=== PATIENT | male | born 1950 | race Caucasian/White ===

== ENCOUNTER 2022-09-17 00:27 | Day surgery (SDC) | payer MEDICARE, SELFPAY ==
[2022-09-04 11:54] VITALS: BMI 28.8
[2022-09-17 07:52] VITALS: BP 124/74; PULSE 54; RESP 18; TEMP 36.2; O2SAT 98
[2022-09-17] MEDS: LACTATED RINGERS 1,000 ML 150 ML IV CONT (08:05)
--- NOTE | 2022-09-17 08:05 | PM.HPGS ---
History of Present Illness History of Present Illness Consent: Risks, benefits, and alternatives have been discussed and questions answered. Patient agrees to proceed with procedure. Chief complaint: Hx of colon polyps Narrative: Bulmaro Jack is a 72 year old male Presents for screening colonoscopy. Patient's current weight appetite and bowel movements are normal. Patient denies abdominal pain. He has had no bleeding. Family history noncontributory. Patient has previous colonoscopy in 2016 revealed benign colon polyp that was removed. Review of Systems Review of Systems: Review of systems noncontributory. [facility] Past Medical History Medical History Colon polyp COVID-19 Left inguinal hernia Metabolic syndrome X Mixed hyperlipidemia FELY (obstructive sleep apnea) FELY on CPAP Polyp of colon Prediabetes Prediabetes Sciatica, right side Surgical History Surgical History H/O hernia repair (~2018) Family History Family History Sibling Diabetes mellitus Depression Brain cancer Renal disease Father Colon cancer Sibling Liver failure Hepatic disorder Other Family history of malignant neoplasm Social History Social History (Updated 07/13/22 @ 08:39 by Teressa Healy CMA) Years smoked: 10 Smoking status: Former smoker Tobacco type: cigarettes Smoking end date: 08/12/83 Alcohol intake: current Drinks per week: 2 Substance use: never Substance use type: does not use Lack of Transportation: No Lack of Food: Never True Current Housing: I Have Housing Concerned About Future Housing: No Difficulty Paying Gas/Electric Bills: No Difficulty Paying for Meds: No Currently Unemployed: No Education: Master's Degree or Higher Difficulty w/ Childcare or Family Care: No Living arrangements: other Additional living arrangements comments: Meds Home Medications and Allergies Home Medications Medication Instructions Recorded Confirmed Type aspirin 81 mg tablet,delayed 81 mg PO DAILY 11/25/19 09/04/22 History release atorvastatin 20 mg tablet 20 mg PO DAILY #90 tabs 12/01/21 09/04/22 Rx metformin 500 mg tablet,extended 500 mg PO DAILY #90 tabs 03/19/22 09/04/22 Rx release 24hr ketoconazole 2 % shampoo 1 applic topical 2XW #120 mL 07/13/22 09/04/22 Rx Allergies Allergy/AdvReac Type Severity Reaction Status Date / Time No Known Allergies Allergy Verified 09/17/22 07:50 Vital Signs Vital Signs - 24 hr 09/17/22 07:52 Temperature 97.2 F L Pulse Rate 54 L Respiratory Rate 18 Blood Pressure 124/74 Pulse Oximetry 98 Oxygen Delivery Room Air Exam Narrative: Physical exam reveals patient to be alert. Vital signs stable. HEENT exam is unremarkable. Patient is anicteric. Lungs are clear to auscultation and percussion. Heart is without murmur or extra sounds. Abdomen bowel sounds are present soft nontender with no organomegaly. Digital external rectal exam is normal. Assessment and Plan Assessment and plan (1) History of colon polyps: Code(s): Z86.010 - Personal history of colonic polyps Status: Acute Assessment and Plan: Patient has a history of colon polyps. Plan for surveillance colonoscopy now and consider this at 5 year intervals in the future.
--- NOTE | 2022-09-17 08:11 | WPDANESEPPF ---
Anes - Initial Pre Proc Eval Procedure: Operation Date: 09/17/22 09:00 Proposed Procedures p Screening Colonoscopy - Wiley Sewell MD Date/Time: 09/17/22 08:11 Surgeon: Wiley Sewell MD Pre Op Diagnosis: Hx of colon polyps Patient Data Age: 72 Gender: M Height: 1.78 m Weight: 89.6 kg Last Vital Signs Temp 36.2 C L 09/17/22 07:52 Pulse 54 L 09/17/22 07:52 Resp 18 09/17/22 07:52 BP 124/74 09/17/22 07:52 Pulse Ox 98 09/17/22 07:52 O2 Del Method Room Air 09/17/22 07:52 Allergies Allergy/AdvReac Type Severity Reaction Status Date / Time No Known Allergies Allergy Verified 09/17/22 07:50 Home Medications Medication Instructions Recorded Confirmed Type aspirin 81 mg tablet,delayed 81 mg PO DAILY 11/25/19 09/04/22 History release atorvastatin 20 mg tablet 20 mg PO DAILY #90 tabs 12/01/21 09/04/22 Rx metformin 500 mg tablet,extended 500 mg PO DAILY #90 tabs 03/19/22 09/04/22 Rx release 24hr ketoconazole 2 % shampoo 1 applic topical 2XW #120 mL 07/13/22 09/04/22 Rx Patient hx anesthesia problems: none Family hx anesthesia problems: none Results Review: All pre-operative results and documents have been reviewed as part of the pre-operative evaluation. [facility] Past Medical History Medical History Colon polyp COVID-19 Left inguinal hernia Metabolic syndrome X Mixed hyperlipidemia FELY (obstructive sleep apnea) FELY on CPAP Polyp of colon Prediabetes Prediabetes Sciatica, right side Surgical History Surgical History H/O hernia repair (~2018) Family History Family History Sibling Diabetes mellitus Depression Brain cancer Renal disease Father Colon cancer Sibling Liver failure Hepatic disorder Other Family history of malignant neoplasm Social History Social History Years smoked: 10 Smoking status: Former smoker Tobacco type: cigarettes Smoking end date: 08/12/83 Alcohol intake: current Drinks per week: 2 Substance use: never Substance use type: does not use Lack of Transportation: No Lack of Food: Never True Current Housing: I Have Housing Concerned About Future Housing: No Difficulty Paying Gas/Electric Bills: No Difficulty Paying for Meds: No Currently Unemployed: No Education: Master's Degree or Higher Difficulty w/ Childcare or Family Care: No Living arrangements: other Additional living arrangements comments: [place] Final PreProcedure Day of Procedure 09/17/22 08:11 Patient weight: overweight Heart: regular rate and rhythm Lungs: clear to auscultation Airway: Mallampati scale class II Neurological: alert and oriented Last oral intake: >/= 8 hours ASA classification: III Emergent: no Anesthesia type and monitoring: general and standard monitoring Results Review: All pre-operative results and documents have been reviewed as part of the pre-operative evaluation. Informed Consent: The patient's anesthetic plan and its attendant risks and benefits were discussed with the patient/family/POA. Questions were solicited and answers provided to the satisfaction of the patient/family/POA.
[2022-09-17 08:40] LABS: Glucose Point of Care 143 mg/dl (65-105)
[2022-09-17 09:25] VITALS: BP 101/57; PULSE 52; RESP 17; O2SAT 96
[2022-09-17 09:35] VITALS: BP 109/75; PULSE 62; RESP 19; O2SAT 98
[2022-09-17 09:45] VITALS: BP 134/99; PULSE 56; RESP 20; O2SAT 98
== END 2022-09-17 10:00 | disposition home or self-care (01) ==
PROVIDERS: PCP Family Medicine; Visit Provider Internal Medicine Gastroenterology
PROC: 0DJD8ZZ Inspection of Lower Intestinal Tract, Via Natural or Artificial Opening Endoscopic (ICD-10-PCS; CPT 45378; principal; 2022-09-17 09:00)
DX: Z12.11 Encounter for screening for malignant neoplasm of colon (principal); K63.5 Polyp of colon; K64.8 Other hemorrhoids; E78.2 Mixed hyperlipidemia; R73.03 Prediabetes; G47.33 Obstructive sleep apnea (adult) (pediatric); Z79.84 Long term (current) use of oral hypoglycemic drugs; Z79.82 Long term (current) use of aspirin; Z87.891 Personal history of nicotine dependence
CPT/HCPCS: 45385; 82948; 88305; J2704; J7120

== ENCOUNTER 2024-09-27 16:49 | Emergency (ER) | payer MEDICARE, SELFPAY ==
--- NOTE | ~2024-09-27 | XR_ITS ---
EXAMINATION: XR finger 2nd RT min 2V DATE: 09/27/2024 17:07 INDICATION: Laceration to the distal right second digit post blunt trauma TECHNIQUE: Dorsal palmar, lateral and oblique views of the right second digit were obtained COMPARISON: None FINDINGS: Laceration at the palmar/radial aspect of the distal tip of the right second digit. Bone alignment is normal. No fracture. Polyarticular osteoarthritis, moderate severity at the right first metacarpopha langeal and interphalangeal joints and mild at many of the remaining visualized interphalangeal joint s including the proximal distal interphalangeal joints of the second digit. IMPRESSION: 1. 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 No acute osseous abnormality. Reviewed, dictated and finalized at location A. [employer] IMPRESSION: 1. 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 No acute osseous abnormality.
--- NOTE | 2024-09-27 16:57 | ED_ITS ---
HPI - Wound/Laceration General Chief Complaint: Wound/Laceration Stated Complaint: Injured Right Hand Time Seen by Provider: 09/27/24 17:00 Source: patient Mode of arrival: ambulatory Limitations: no limitations History of Present Illness HPI narrative: Bulmaro is a 74-year-old male patient presenting to the clinic today with complaints of right index finger injury. He reports he slammed in car door approximately 2-3 hours ago. Bleeding is controlled. Washed with soap and water and dressed with gauze. Related Data Home Medications ?Medication ?Instructions ?Recorded ?Confirmed ?Last Taken ?Type aspirin 81 mg tablet,delayed 81 mg PO DAILY 11/25/19 09/27/24 09/16/22 History release metformin 500 mg tablet,extended 500 mg PO .Q12hr 02/28/24 09/27/24 Unknown History release 24 hr Allergies Allergy/AdvReac Type Severity Reaction Status Date / Time No Known Allergies Allergy Verified 09/27/24 16:54 Review of Systems Review of Systems: Pertinent positives per HPI. Patient denies any fever, chills, rash, headache, visual changes, dizziness, cough, runny nose, sore throat, shortness of breath, chest pain, palpitations, nausea, vomiting, diarrhea, constipation, abdominal pain, or any urinary issues. [facility] Past Medical History Medical History COVID-19 Left inguinal hernia FELY on CPAP Polyp of colon Prediabetes Sciatica, right side FELY (obstructive sleep apnea) Metabolic syndrome X Colon polyp Prediabetes Mixed hyperlipidemia Surgical History Surgical History H/O hernia repair (~2018) Family History Family History Sibling Diabetes mellitus Depression Brain cancer Renal disease Father Colon cancer Sibling Liver failure Hepatic disorder Pancoast tumor Other Family history of malignant neoplasm Social History Social History Years smoked: 10 Smoking status: Former smoker Tobacco type: cigarettes Smoking end date: 08/12/83 Alcohol intake: current Drinks per week: 2 Substance use: never Substance use type: does not use Lack of Transportation: No Lack of Food: Never True Current Housing: I Have Housing Concerned About Future Housing: No Difficulty Paying Gas/Electric Bills: No Difficulty Paying for Meds: No Currently Unemployed: No Education: Master's Degree or Higher Difficulty w/ Childcare or Family Care: No Living arrangements: other Additional living arrangements comments: Comments At the time of my signature, I reviewed and agree with the nursing past medical, surgical, social, and family history. There is no relevant family history pertinent to the patient complaint. Exam Narrative: General: Well-developed, well nourished, in no apparent distress Head: Normocephalic, atraumatic. Cardio: Regular rate and rhythm, s1 and s2 normal, no murmur appreciated. Resp: Clear to auscultation bilaterally, no rhonchi, rales, wheezing or rubs. Integumentary: [place], warm, and dry, 1.5 cm flap laceration to the right dorsal index finger, small subungual hematoma to the nail bed Course Course Emergency Course: Portions of this record may have been created with voice recognition software. Level of Care: Express Care Visit Vital Signs Vital signs: Vital Signs Temperature 36.5 C 09/27/24 16:58 Pulse Rate 71 09/27/24 16:58 Respiratory Rate 16 09/27/24 16:58 Blood Pressure 136/86 09/27/24 16:58 Pulse Oximetry 98 09/27/24 16:58 Temperature 36.5 C 09/27/24 16:58 Pulse Rate 71 09/27/24 16:58 Respiratory Rate 16 09/27/24 16:58 Blood Pressure 136/86 09/27/24 16:58 Pulse Oximetry 98 09/27/24 16:58 Vital signs reviewed Procedures Laceration Laceration 1: Date: 09/27/24 Site: hand (right 2nd finger) Side (If applicable): right Size (cm): 1.5 Description: flap Depth: simple, single layer Local Anesthetic: lidocaine 1% Amount of anesthesia used (mL): 2 Pre-repair: wound explored and irrigated ====== Skin Level ====== Skin layer closed with: nylon Size (cm): 5-0 Number of sutures: 7 Technique: simple, interrupted ====== Subcutaneous Layer ====== ====== Muscle Layer ====== ====== Tendon Layer ====== Dressing: Verbal consent obtained for laceration repair. Risk and benefits explained and patient voiced understanding. Area was cleansed with and aseptic wound wash and a 27 gauge needle was then used to instill (2) ml of 1% lidocaine without epi into the wound edges. Area was prepped and draped using sterile technique. A 5-0 suture on a p needle was used to place (7) interrupted sutures bringing the wound edges together- well approximated. Patient tolerated procedure well. Sterile dressing applied. MDM - Wound/Laceration MDM Narrative Medical decision making narrative: At the time of visit patient is resting comfortably on the exam table. Patient appears to be nontoxic. Diagnostics: X-ray of the right index finger was negative for any sign of foreign body, fracture, or malalignment. Procedures: Laceration repair was performed. Seven interrupted sutures were placed bringing wound edges well approximate. Patient tolerated well Plan: Patient has a 1.5 cm laceration to the dorsal right 2nd finger. Laceration repair was performed. Patient has small subungual hematoma to the nail bed Supportive measures were discussed with the patient and they voiced understanding discharge instructions and agrees to treatment plan. Return precautions reviewed Differential Diagnosis Differential diagnosis: Likely laceration, abscess, abrasion, avulsion of skin and other (Finger fracture, crush injury) Imaging Data Radiologist's impression: ITS Impressions Finger X-Ray 09/27/24 17:14 IMPRESSION: 1. 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 No acute osseous abnormality. Discharge Plan Discharge Clinical Impression: Finger laceration Qualifiers: Encounter type: initial encounter Finger: index finger Damage to nail status: without damage Foreign body presence: without foreign body Laterality: right Qualified Code(s): S61.210A - Laceration without foreign body of right index finger without damage to nail, initial encounter Crush injury to finger Qualifiers: Encounter type: initial encounter Qualified Code(s): S67.10XA - Crushing injury of unspecified finger(s), initial encounter Patient Disposition: Home, Self-Care Condition: Stable Instructions: Antibiotic Form, Care For Your Stitches (ED), Laceration (ED), Crush Injury (ED) Additional Instructions: X-ray of the right index finger is negative for any sign of fracture or malalignment. Leave bandage on for 24 hours then may remove and apply band aide covering as needed. Keep wound clean and dry Skin sutures out in 7 days. Watch for signs and symptoms of infection- redness, streaking, swelling, purulent discharge, or increase in pain. Follow up with your PCP for suture removal or return to the Express care. Patient Language: Cypriot Prescriptions: No Action aspirin 81 mg tablet,delayed release (DR/EC) 81 mg PO DAILY metformin 500 mg tablet extended release 24 hr 500 mg PO .Q12hr ketoconazole 2 % shampoo 1 applic topical 2XW Qty: 120 0RF triamcinolone acetonide 0.1 % cream 1 applic topical QID Qty: 80 0RF levothyroxine [Synthroid] 75 mcg tablet 75 mcg PO DAILY Qty: 90 1RF atorvastatin 20 mg tablet See Rx Instructions .ROUTE .COMPLEX Qty: 90 1RF Dose Instruction: TAKE 1 TABLET BY MOUTH DAILY Rx Instructions: TAKE 1 TABLET BY MOUTH DAILY (DME) CPAP See Rx Instructions .Route .MEDSUPPLY Qty: 1 0RF Rx Instructions: Replacement machine with tubing and supplies to continue same treatment he has been getting. Follow-up/Referrals: Nicholas Andrade MD [Primary Care Provider] - Time of Disposition: 17:33 Quality NIHSS Nursing Documentation ED NIHSS nursing documentation: reviewed/agree
[2024-09-27 16:58] VITALS: BP 136/86; PULSE 71; RESP 16; TEMP 36.5; O2SAT 98
[2024-09-27] MEDS: LIDOCAINE 1% LOCAL INJ 2 ML AMPUL INFILTRATE (17:09)
[2024-09-27] MEDS: TETANUS,DIPHTHERIA,AC PERTUSSIS ADULT (0.5 ML) BOOSTRIX IM (17:09)
== END 2024-09-27 17:38 | disposition home or self-care (01) ==
PROVIDERS: Emergency Provider Nurse Practitioner Family; PCP Family Medicine
DX: S61.210A Laceration without foreign body of right index finger without damage to nail, initial encounter (principal); V48.3XXA Unspecified car occupant injured in noncollision transport accident in nontraffic accident, initial encounter; S67.190A Crushing injury of right index finger, initial encounter; Z87.891 Personal history of nicotine dependence; G47.33 Obstructive sleep apnea (adult) (pediatric); R73.03 Prediabetes; E78.2 Mixed hyperlipidemia; Z86.16 Personal history of COVID-19
CPT/HCPCS: 12001; 73140; 90471; 90715; 99213; G0463; J2003